=== PATIENT | female | born 1975 | race Caucasian/White ===

== ENCOUNTER 2023-09-30 07:59 | Outpatient (CLI) | payer MEDICAID ==
[~2023-09-30 07:59] MED LIST: NORT10CA2 PO
== END 2023-09-30 23:59 | disposition home or self-care (01) ==
LOC: RAD 07:59
PROVIDERS: ATTEND Family Medicine
DX: D25.9 Leiomyoma of uterus, unspecified (principal); R10.2 Pelvic and perineal pain
CPT/HCPCS: 76830; 76856; 93976